=== PATIENT | male | born 1965 | race Caucasian/White ===

== ENCOUNTER 2024-04-11 17:48 | Inpatient (IN) | payer OTHER ==
[~2024-04-11] VITALS: Ht 180.3 cm; Wt 162.4 kg
[2024-04-11] MEDS ORDERED: MELATONIN 3 MG TABLET PO PRN (20:45)
[2024-04-11] MEDS ORDERED: IPRATROPIUM BROMIDE 0.5 MG/2.5 ML NEB SOLUTION NEB PRN (21:00)
[2024-04-11] MEDS ORDERED: DOCUSATE SODIUM 100 MG CAPSULE PO SCH (21:00)
[2024-04-11] MEDS ORDERED: LACTULOSE 20 GM/30 ML SOLUTION UDCUP PO PRN (21:15)
[2024-04-11] MEDS ORDERED: BISACODYL 10 MG RECTAL RECTAL SUPPOSITORY PR PRN (21:30)
[2024-04-11 21:33] VITALS: BP 119/69; PULSE 88; RESP 20; TEMP 98.1; O2SAT 94
[2024-04-11] MEDS: ENOXAPARIN SODIUM 40 MG/0.4 ML PF SYRINGE SQ SCH (21:46)
[2024-04-11] MEDS: SENNOSIDES 8.6 MG TABLET PO SCH (21:46)
[2024-04-11] MEDS: ETHYL ALCOHOL 62% ANTISEPTIC NASAL SANITIZER 0.6 ML AMPUL NASAL SCH (21:49)
[2024-04-11 22:00] VITALS: BP 124/73; PULSE 87; RESP 20; TEMP 98.3; O2SAT 94
[2024-04-11] MEDS: DOCUSATE SODIUM 250 MG CAPSULE PO SCH (22:00)
[2024-04-11] MEDS: BACITRACIN 28 GM OINTMENT TP SCH (23:29)
[2024-04-11] MEDS: GABAPENTIN 300 MG CAPSULE PO SCH (23:30)
[2024-04-11] MEDS: ACETAMINOPHEN 500 MG TABLET PO SCH (23:30)
[2024-04-11] MEDS: METHOCARBAMOL 500 MG TABLET PO SCH (23:31)
[2024-04-12] VITALS (10 sets, daily range): BP systolic 122–130; BP diastolic 67–88; PULSE 75–89; RESP 15–20; TEMP 97.8–98.5; O2SAT 93–98
[2024-04-12] MEDS: OxyCODONE HCL 10 MG IR TABLET PO PRN (04:55)
[2024-04-12] MEDS: OXYGEN THERAPY IH SCH (08:00)
[2024-04-12] MEDS: ENOXAPARIN SODIUM 60 MG/0.6 ML PF SYRINGE SQ SCH (08:16)
[2024-04-12] MEDS: LOSARTAN POTASSIUM 50 MG TABLET PO SCH (08:17)
[2024-04-12] MEDS: CARVEDILOL 6.25 MG TABLET PO SCH (08:17)
[2024-04-12] MEDS: POLYETHYLENE GLYCOL 3350 17 GM PACKET PO SCH (08:23)
[2024-04-12 08:32] LABS: BASOPHILS % (AUTO) 0.2 % (0.0-2.0); EOSINOPHILS % (AUTO) 2.9 % (1.0-6.0); HEMATOCRIT 33.2 % (41-53); HEMOGLOBIN 11.3 g/dL (13.5-17.5); LYMPHOCYTES # (AUTO) 1.2 K/uL (1.0-4.8); MEAN CORPUSCULAR HGB CONC 34.1 G/dL (31.0-37.0); MEAN CORPUSCULAR VOLUME 88 fL (80-100); MONOCYTES # (AUTO) 0.9 K/uL (0.1-1.0); MONOCYTES % (AUTO) 10.4 % (2.0-9.0); NEUTROPHILS # (AUTO) 6.6 K/uL (1.8-7.7); NEUTROPHILS % (AUTO) 73.5 % (40.0-70.0); PLATELET COUNT (AUTO) 338 K/uL (150-450); RED BLOOD CELL COUNT(AUTO) 3.78 MIL/uL (4.50-5.90); RED CELL DISTRIBUTION WIDTH 15.1 % (11.5-14.5)
[2024-04-12 08:39] LABS: ALBUMIN 2.9 g/dL (3.4-5.0); BILIRUBIN,TOTAL 0.8 mg/dL (0.1-1.0); CALCIUM, TOTAL 8.7 mg/dL (8.8-10.5); CREATININE 1.29 mg/dL (0.60-1.30); POTASSIUM 4.1 mmol/L (3.5-5.1)
[2024-04-12] MEDS ORDERED: LIDOCAINE 5% TRANSDERMAL PATCH TD SCH (09:00)
[2024-04-12] MEDS: FAMOTIDINE 20 MG TABLET PO SCH (20:34)
[2024-04-12] MEDS: LIDOCAINE 5% TRANSDERMAL PATCH TD SCH (20:37)
[2024-04-12] MEDS: -LIDODERM PATCH NOTE- MISC SCH (20:54)
[2024-04-13] MEDS ORDERED: LOSA-382 PO (03:36)
[2024-04-13] MEDS ORDERED: CARV6 PO (03:36)
[2024-04-13 08:15] VITALS: BP 128/64; PULSE 73; RESP 18; TEMP 98.4; O2SAT 98
[2024-04-13 11:41] VITALS: O2SAT 98
[2024-04-13 16:07] VITALS: BP 126/72; PULSE 75; RESP 18; TEMP 98; O2SAT 98
[2024-04-13 20:00] VITALS: O2SAT 96
[2024-04-13 20:15] VITALS: BP 142/63; PULSE 79; RESP 18; TEMP 98.8; O2SAT 96
[2024-04-13 21:00] VITALS: O2SAT 96
[2024-04-14 08:05] VITALS: BP 126/64; PULSE 80; RESP 18; TEMP 98.4; O2SAT 98
[2024-04-14] MEDS: OxyCODONE HCL 5 MG IR TABLET PO PRN (08:53)
[2024-04-14 09:50] VITALS: O2SAT 98
[2024-04-14 20:30] VITALS: BP 130/63; PULSE 81; RESP 18; TEMP 98.2; O2SAT 97
[2024-04-14 22:34] VITALS: O2SAT 97
[2024-04-14 22:35] VITALS: O2SAT 97
[2024-04-15 08:00] VITALS: BP 136/67; PULSE 76; RESP 18; TEMP 97.5; O2SAT 99
[2024-04-15] MEDS: OxyCODONE HCL 5 MG IR TABLET PO PRN (08:24)
[2024-04-15 16:46] VITALS: BP 127/68; PULSE 76; RESP 18
[2024-04-15 20:23] VITALS: BP 116/61; PULSE 77; RESP 19; TEMP 97.9; O2SAT 98
[2024-04-15 20:27] VITALS: O2SAT 98
[2024-04-15 21:13] VITALS: O2SAT 98
[2024-04-16 08:03] VITALS: BP 126/64; PULSE 72; RESP 18; TEMP 98.6; O2SAT 98
[2024-04-16 08:03] LABS: BASOPHILS % (AUTO) 0.7 % (0.0-2.0); EOSINOPHILS % (AUTO) 2.2 % (1.0-6.0); HEMOGLOBIN 11.4 g/dL (13.5-17.5); LYMPHOCYTES # (AUTO) 1.2 K/uL (1.0-4.8); LYMPHOCYTES % (AUTO) 18.2 % (22.0-44.0); MEAN CORPUSCULAR HEMOGLOBIN 29.6 pg (26.0-34.0); MEAN CORPUSCULAR HGB CONC 33.6 G/dL (31.0-37.0); MEAN CORPUSCULAR VOLUME 88 fL (80-100); MONOCYTES # (AUTO) 0.7 K/uL (0.1-1.0); MONOCYTES % (AUTO) 9.8 % (2.0-9.0); NEUTROPHILS # (AUTO) 4.7 K/uL (1.8-7.7); NEUTROPHILS % (AUTO) 69.1 % (40.0-70.0); PLATELET COUNT (AUTO) 339 K/uL (150-450); RED BLOOD CELL COUNT(AUTO) 3.86 MIL/uL (4.50-5.90); RED CELL DISTRIBUTION WIDTH 15.7 % (11.5-14.5); WHITE BLOOD COUNT (AUTO) 6.9 K/uL (4.5-11.0)
[2024-04-16 09:57] VITALS: O2SAT 98
[2024-04-16] MEDS ORDERED: LOSA-382 PO (13:23)
[2024-04-16] MEDS ORDERED: CARV6 PO (13:23)
[2024-04-16] MEDS ORDERED: OXYC5 PO (13:23)
[2024-04-16] MEDS ORDERED: FAMO20 PO (13:23)
[2024-04-16] MEDS ORDERED: ASPI-1515 PO (13:25)
[2024-04-16] MEDS ORDERED: GABA-1181 PO (13:26)
[2024-04-16 17:20] VITALS: BP 128/72; PULSE 70; RESP 18; TEMP 98.2; O2SAT 98
[2024-04-16 20:30] VITALS: BP 149/66; PULSE 80; RESP 18; TEMP 98.1; O2SAT 96
[2024-04-16 20:31] VITALS: O2SAT 96
[2024-04-16 21:40] VITALS: O2SAT 96
[2024-04-17 02:46] VITALS: O2SAT 96
[2024-04-17 08:03] VITALS: BP 130/71; PULSE 74; RESP 18; TEMP 98.6; O2SAT 98
[2024-04-17 08:05] VITALS: O2SAT 98
[2024-04-17 20:00] VITALS: BP 123/69; PULSE 78; RESP 19; TEMP 98.1; O2SAT 96
[2024-04-17 21:00] VITALS: O2SAT 96
[2024-04-18 08:02] VITALS: BP 140/77; PULSE 81; RESP 18; TEMP 97.8; O2SAT 97
== END 2024-04-18 12:45 | disposition home health service (06) | DRG 184 ==
LOC: 2WR 20:08
PROVIDERS: ADMIT Physical Medicine & Rehabilitation; ATTEND Physical Medicine & Rehabilitation
DX: S22.43XA Multiple fractures of ribs, bilateral, initial encounter for closed fracture (principal); E46 Unspecified protein-calorie malnutrition; Z68.42 Body mass index [BMI] 45.0-49.9, adult; J94.2 Hemothorax; X58.XXXA Exposure to other specified factors, initial encounter; E66.01 Morbid (severe) obesity due to excess calories; D64.9 Anemia, unspecified; E78.5 Hyperlipidemia, unspecified; G47.33 Obstructive sleep apnea (adult) (pediatric); I10 Essential (primary) hypertension; R07.81 Pleurodynia; Z74.09 Other reduced mobility; R26.9 Unspecified abnormalities of gait and mobility; J98.2 Interstitial emphysema; Z80.42 Family history of malignant neoplasm of prostate; R10.9 Unspecified abdominal pain; V29.99XA Rider (driver) (passenger) of other motorcycle injured in unspecified traffic accident, initial encounter; Y93.89 Activity, other specified; Y92.89 Other specified places as the place of occurrence of the external cause; Y99.8 Other external cause status; Z86.718 Personal history of other venous thrombosis and embolism
CPT/HCPCS: 71045; 80053; 85025; 87081; 93971; 94660; 97110; 97116; 97162; 97166; 97530; 97535; 99366; J1650; 36415-L1; 36415-TC